=== PATIENT | female | born 1975 | race Caucasian/White ===

== ENCOUNTER → 2017-06-15 | Outpatient (CLI) | payer BC ==
[~2017-06-15] MED LIST: ACETAMINOPHEN325 M1 PO; AGGRENOX CAPSU1 EACH PO; AMITRIPTYLINE H50 M2 OR; AMITRIPTYLINE H50 M2 PO; BUSPAR PO; BUSPIRONE; BUTALB-APAP-CA1 EACH PO; FIORICET 50-301 EACH PO; HYDROCORTISONE30 G9 RECTAL; LIPITOR40 MG PO; NORCO 5-325 TA1 EACH PO; PAROXETINE HCL20 MG PO; PAXIL 20 MG TAB20 MG PO; TOPAMAX; TOPAMAX 100 MG100 MG PO; TRILIPIX135 MG PO; VITAMIN D 5050000 I1 PO; [UNRECOGNIZED DRUG - OTHER] PO
== END ==
LOC: NEURO 09:29
DX: I63.9 Cerebral infarction, unspecified (principal); G43.919 Migraine, unspecified, intractable, without status migrainosus; F41.9 Anxiety disorder, unspecified; R47.81 Slurred speech

== ENCOUNTER → 2018-06-07 | Outpatient (CLI) | payer BC | LOC: ULTRA 09:08 | DX: I73.9 Peripheral vascular disease, unspecified (principal); M79.89 Other specified soft tissue disorders; I10 Essential (primary) hypertension; E78.5 Hyperlipidemia, unspecified; G43.909 Migraine, unspecified, not intractable, without status migrainosus ==

== ENCOUNTER 2020-05-05 00:15 | Inpatient (IN) | payer BC ==
[~2020-05-05] VITALS: Ht 152.4 cm; Wt 96.1 kg
[2020-05-05 00:21] VITALS: BP 175/94
[2020-05-05] MEDS ORDERED: ASA81BEC PO (00:29)
[2020-05-05 00:45] LABS: ABSOLUTE NEUTROPHILS 4.8 thou/uL (1.4-8.2); BASOPHILS 1.3 % (0.0-2.0); EOSINOPHILS 2.4 % (0.0-3.0); HEMATOCRIT 44.6 % (37.0-47.0); HEMOGLOBIN 15.2 gm/dL (12.0-15.0); LYMPHOCYTES 35.1 % (24.0-44.0); MCH 30.6 pg (26.0-34.0); MCHC 34.1 g/dL (28.0-37.0); MCV 89.8 fL (80.0-100.0); MONOCYTES 6.2 % (1.0-8.0); PLATELET COUNT 203 thou/uL (150-400); RBC 4.97 mil/uL (4.20-5.00); RDW 13.7 % (10.5-14.5); WBC 8.7 thou/uL (4.0-11.0)
[2020-05-05 00:51] LABS: ANION GAP 12 mmol/L (7-16); BUN 10 mg/dL (7-18); CALCIUM 9.1 mg/dL (8.5-10.1); CHLORIDE 99 mmol/L (98-107); CO2 19 mmol/L (21-32); CREATININE 1.2 mg/dL (0.6-1.0); GLUCOSE 338 mg/dL (74-106); POTASSIUM 3.6 mmol/L (3.5-5.1); SODIUM 130 mmol/L (136-145)
[2020-05-05 01:01] LABS: ALBUMIN 3.2 g/dL (3.4-5.0); MAGNESIUM 1.6 mg/dL (1.8-2.4); SGOT 46 U/L (15-37); SGPT 77 U/L (30-65); TOTAL BILIRUBIN 0.3 mg/dL (0.2-1.0); TOTAL PROTEIN 8.6 g/dL (6.4-8.2); TROPONIN-I <0.06 ng/mL (<0.06)
[2020-05-05] MEDS ORDERED: NORFLEX100 MG PO (02:23)
[2020-05-05] MEDS ORDERED: TYLENOL WITH CO1 TA1 PO (02:23)
[2020-05-05] MEDS ORDERED: ONDANSETRON ODT8 MG PO (02:23)
[2020-05-05] MEDS ORDERED: NAPROSYN500 MG PO (02:23)
[2020-05-05 07:28] VITALS: BP 168/85
[2020-05-05 08:04] VITALS: BP 181/101
--- NOTE | 2020-05-05 08:12 | NUR ---
ASSUMED CARE OF PT AT 0813. REC REPORT 30 MIN PRIOR, NO NAUSEA OR CP AT THIS TIME. AMB STEADY, ENCOURAGED HER TO SIT AT BEDSIDE A MOMENT OR TWO BEFORE RISING OR CALL FOR ANY NEEDS. HUNGRY. WILL ENSURE HOME MEDS AND PHARMACY ARE CORRECT LATER IN SHIFT. HAS ON SUPPLEMENTAL 02 PER PROTOCOL. STATES SHE DOES HAVE PROPENSITY FOR ANXIETY ATTACKS WELL CHEST TIGHTNESS. SEE SEPARATE INTERVENTIONS FOR ASSESSMENT. VERY TALKATIVE, STATES SHE HAS HAD TIAS IN 2004, CAN STUTTER AND SLUR WORDS. HAS HAD HER BOTTOM TEETH PULLED OUT RECENTLY, POSSIBLE INFECTION. ENCOURAGED HER TO USE CALL LIGHT FOR ANY NEEDS
[2020-05-05] MEDS ORDERED: TYLENOL325 M1 PO (08:22)
[2020-05-05 11:41] LABS: CHOLESTEROL 266 mg/dL (<200); HDL CHOLESTEROL 41 mg/dL (>40); LDL CHOLESTEROL 163 mg/dL (<100); TC:HDL 6.5 Ratio (Not establshd); TRIGLYCERIDE 314 mg/dL (<150); VLDL 63 mg/dL (<40)
[2020-05-05 12:05] VITALS: BP 148/85
[2020-05-05 16:05] VITALS: BP 141/74
[2020-05-05 16:09] LABS: AMP/METHAMP Negative (Negative); BARBITURATES Negative (Negative); BENZODIAZEPINES Negative (Negative); COCAINE Negative (Negative); METHADONE Negative (Negative); OPIATES POSITIVE (Negative); PCP Negative (Negative)
[2020-05-05 20:13] VITALS: BP 123/67
[2020-05-06 00:39] VITALS: BP 146/88
[2020-05-06 03:03] LABS: CALCIUM 8.2 mg/dL (8.5-10.1); CREATININE 0.9 mg/dL (0.6-1.0)
[2020-05-06 03:23] LABS: TROPONIN-I 32.44 ng/mL (<0.06)
[2020-05-06 04:59] VITALS: BP 125/69
[2020-05-06 07:15] VITALS: BP 148/79
--- NOTE | 2020-05-06 08:00 | EKG ---
[facility] [place] [address] ELECTROCARDIOGRAM REPORT Name: XAVIER KIDD Kandice Room #: 213-P ADM IN M.R.#: [id number] Admission: 05/05/20 Attend Phys: Lake Foley MD Discharge: Date of : 71 Report #: [id number] THIS REPORT FOR: cc: Zion Strong MD, Mark S. MD Lundgren, Craig H. 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1975 Requested By: Jose Christine Order Number: [id number] MD: Oscar Cabello Measurements Intervals [place] Rate: 108 P: 159 IN: 156 QRS: 80 QRSD: 131 T: 49 QT: 383 QTc: 514 Interpretive Statements Sinus tachycardia Possible anteroseptal infarct, old Baseline wander in lead(s) III Compared to ECG 01/22/2011 23:11:29 Septal Q waves are now present Electronically Signed On 05-06-2020 7:59:40 CDT by Oscar Cabello [email or web address] <ELECTRONICALLY SIGNED> By: Oscar Cabello MD, [facility] 05/06/20 0759 0022 0022 Oscar Cabello MD, FAC /EPI
--- NOTE | 2020-05-06 08:04 | EKG ---
[facility] [place] [address] ELECTROCARDIOGRAM REPORT Name: XAVIER KIDD Room #: 213-P ADM IN M.R.#: [id number] Admission: 05/05/20 Attend Phys: Lake Foley MD Discharge: Date of : 71 Report #: [id number] THIS REPORT FOR: cc: Zion Strong MD, Mark S. MD Lundgren, Craig H. 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 : 1975 Requested By: Jose Christine Order Number: [id number] MD: Oscar Cabello Measurements Intervals [place] Rate: 93 P: 59 [place]: 135 QRS: 92 QRSD: 96 T: 50 QT: 356 QTc: 443 Interpretive Statements Sinus rhythm Borderline right axis deviation Low voltage, precordial leads Compared to ECG 05/05/2020 00:22:14 No significant change was found Electronically Signed On 05-06-2020 8:03:58 CDT by Oscar Cabello [email or web address] <ELECTRONICALLY SIGNED> By: Oscar Cabello MD, [facility] 05/06/20802 0 0 Oscar Cabello MD, [facility] /EPI
--- NOTE | 2020-05-06 11:06 | 2DMMODE ---
[facility] [place] [address] 2 D/M-MODE ECHOCARDIOGRAM Name: XAVIER KIDD Room #: 213-P [facility] IN .R.#: [id number] Admission: 05/05/20 Attend Phys: Sky Rey MD Discharge: Date of : 71 Report #: [id number] THIS REPORT FOR: cc: Zion Strong MD, Mark S. MD Mancuso, Gerald M. MD [facility] ~ APPROVED REPORT Study performed: 05/06/2020 08:07:13 EXAM: Comprehensive 2D, Doppler, and color-flow Echocardiogram Patient Location: Bedside Room #: 213 Status: routine BSA: 1.97 HR: 106 bpm BP: 148/79 mmHg Rhythm: NSR Other Information Study Quality: Adequate Risk Factors: Cardiac Risk Factors: HTN, Hyperlipidemia, Smoking Indications Congestive Heart Failure Non STEMI Dyspnea Elevated Troponin Chest Pain 2D Dimensions IVSd: 9.04 (7-11mm) LVOT Diam: 17.00 (18-24mm) LVDd: 39.02 mm PWd: 10.72 (7-11mm) Ascending Ao: 26.33 (22-36mm) LVDs: 29.59 (25-40mm) Aortic Root: 22.97 mm LV Single Plane 4CH: 54.82 % LV Single Plane 2CH: 49.07 % Biplane EF: 55.8 % Volumes [facility] [address] [place] [address] 2 D/M-MODE ECHOCARDIOGRAM Name: XAVIER KIDD Room #: 213-P [facility] IN ..#: [id number] Admission: 05/05/20 Attend Phys: Lester Monet Discharge: Date of : 71 Report #: [id number] Left Atrial Volume (Systole) Single Plane 4CH: 54.55 mL Single Plane 2CH: 41.69 mL LA ESV Index: 27.00 mL/m2 Aortic Valve AoV Peak Sonu.: 1.90 m/s AO Peak Gr.: 14.40 mmHg LVOT Max P.88 mmHg LVOT Max V: 1.21 m/s SAMMI Vmax: 1.38 cm2 Mitral Valve MV Peak Gr.: 24.00 mmHg MV Mean Gr.: 15.40 mmHg MV Decel. Time: 172.60 ms MV Max Sonu.: 2.43 m/s MV Mean Sonu.: 1.89 m/s MV VTI: 502.63 mm MV PHT: 50.05 ms MVA (PHT): 2.44 cm2 TDI Medial E' Sonu.: 0.07 m/s Lateral E' Sonu.: 0.08 m/s Pulmonary Valve PV Peak Sonu.: 1.22 m/s PV Peak Gr.: 5.92 mmHg Tricuspid Valve RAP Estimate: 10.00 mmHg Left Ventricle The left ventricle is normal size. There is normal LV segmental wall motion. Borderline concentric left ventricular hypertrophy. The left ventricular systolic function is normal. The left ventricular ejection fraction is within the normal range. LVEF is 50-55%. This study is not technically sufficient to allow evaluation of the LV diastolic function. Right Ventricle The right ventricle is normal size. The right ventricular systolic function is normal. Atria The left atrium size is normal. The right atrium size is normal. [facility] [address] [address] 2 D/M-MODE ECHOCARDIOGRAM Name: XAVIER KIDD Room #: 213-P ADM IN M.R.#: [id number] Admission: 05/05/20 Attend Phys: Lester Monet Discharge: Date of : 71 Report #: [id number] Aortic Valve The aortic valve is normal in structure. No aortic regurgitation is present. There is no aortic valvular stenosis. Mitral Valve There is mitral annular calcification. Mitral valve leaflets are mildly thickened and have restricted excursion. Mild mitral regurgitation. The maximum mitral valve pressure gradient is 24 mmHg and the mean pressure gradient is 15 mmHg. The calculated mitral valve area is 2.3 cm2. Tricuspid Valve The tricuspid valve is normal in structure. There is no tricuspid valve regurgitation noted. Pulmonic Valve The pulmonary valve is normal in structure. Trace pulmonic regurgitation. Great Vessels The aortic root is normal in size. The ascending aorta is normal in size. IVC is dilated and collapses <50% with inspiration. Pericardium Small pericardial effusion. <Conclusion> The left ventricle is normal size. Borderline concentric left ventricular hypertrophy. LVEF is 50-55%. This study is not technically sufficient to allow evaluation of the LV diastolic function. The right ventricle is normal size. The left atrium size is normal. The aortic valve is normal in structure. There is mitral annular calcification. Mitral valve leaflets are mildly thickened and have restricted excursion. Mild mitral regurgitation. The maximum mitral valve pressure gradient is 24 mmHg and the mean pressure gradient is 15 mmHg. The calculated mitral valve area is 2.3 cm2. [facility] [email or web address] [address] 2 D/M-MODE ECHOCARDIOGRAM Name: XAVIER KIDD Room #: 213-P [facility] IN ..#: [id number] Admission: 05/05/20 Attend Phys: Lester Monet Discharge: Date of : 71 Report #: [id number] The aortic root is normal in size. Small pericardial effusion. <ELECTRONICALLY SIGNED> By: Flaquito Marie MD, FACC 05/06/20 1105 04 Flaquito Marie MD, FACC /INF
[2020-05-06 13:48] LABS: BE(vivo) -9.6 mmol/L (-2 to +3); HCO3 15.5 mmol/L (22.0-26.0); PCO2 31.8 mmHg (35.0-45.0); PO2 108.6 mmHg (80.0-100.0); pH 7.305 (7.360-7.450); sO2 97.6 % (92.0-98.0)
--- NOTE | 2020-05-06 14:00 | NUR ---
RRRT CALLED SEE FLOWSHEET.
[2020-05-06 14:03] LABS: ABSOLUTE NEUTROPHILS 9.7 thou/uL (1.4-8.2); BASOPHILS 0.8 % (0.0-2.0); EOSINOPHILS 0.6 % (0.0-3.0); HEMATOCRIT 41.5 % (37.0-47.0); HEMOGLOBIN 14.1 gm/dL (12.0-15.0); LYMPHOCYTES 12.7 % (24.0-44.0); MCH 30.6 pg (26.0-34.0); MCHC 34.1 g/dL (28.0-37.0); MCV 89.7 fL (80.0-100.0); MONOCYTES 4.4 % (1.0-8.0); PLATELET COUNT 208 thou/uL (150-400); POLYS 81.5 % (36.0-66.0); RBC 4.62 mil/uL (4.20-5.00); RDW 14.1 % (10.5-14.5); WBC 11.9 thou/uL (4.0-11.0)
[2020-05-06 14:09] LABS: CALCIUM 8.2 mg/dL (8.5-10.1); CREATININE 1.1 mg/dL (0.6-1.0); POTASSIUM 4.4 mmol/L (3.5-5.1)
[2020-05-06 15:54] VITALS: BP 123/74
--- NOTE | 2020-05-06 16:29 | 2DMMODE ---
[address] [address] 2 D/M-MODE ECHOCARDIOGRAM Name: XAVIER KIDD Kandice Room #: 213-P ADM IN M.R.#: [id number] Admission: 05/05/20 Attend Phys: Sky Rey MD Discharge: Date of : 71 Report #: [id number] THIS REPORT FOR: cc: Zion Strong MD, Mark S. MD Lundgren, Craig H. MD [facility] ~ APPROVED REPORT Study performed: 05/06/2020 14:05:01 EXAM: Comprehensive 2D, Doppler, and color-flow Echocardiogram Patient Location: Bedside Room #: 213 Status: stat BSA: 1.97 HR: 96 bpm BP: 146/79 mmHg Rhythm: NSR Other Information Study Quality: Adequate Indications Dyspnea Chest Pain Left Ventricle The left ventricle is normal size. There is normal left ventricular wall thickness. The left ventricular systolic function is normal. Mild inferolateral wall hypokinesis LVEF is 50-55%. Right Ventricle The right ventricle is normal size. The right ventricular systolic function is normal. Atria The left atrium size is normal. The right atrium size is normal. Aortic Valve The aortic valve is normal in structure. Mitral Valve The mitral valve is normal in structure. [address] [address] 2 D/M-MODE ECHOCARDIOGRAM Name: XAVIER KIDD Room #: 213-P [facility] IN .R.#: [id number] Admission: 05/05/20 Attend Phys: Lester Monet Discharge: Date of : 71 Report #: [id number] Tricuspid Valve The tricuspid valve is normal in structure. Pulmonic Valve The pulmonary valve is normal in structure. Great Vessels The aortic root is normal in size. Pericardium There is no pericardial effusion <Conclusion> Very limited study, no Doppler or color flow mapping The left ventricular systolic function is normal. Mild inferolateral wall hypokinesis LVEF is 50-55%. The aortic valve is normal in structure. The mitral valve is normal in structure. There is no pericardial effusion <ELECTRONICALLY SIGNED> By: Oscar Cabello MD, [facility] 05/06/20 1629 1629 162 Oscar Cabello MD, FAC /INF
--- NOTE | 2020-05-06 19:49 | NUR ---
ASSUMED CARE PT SHIFT CHANGE. ASSESSMENTS CHARTED.MEDS GIVEN PER DEC. PT ALERT AND ORIENTED.VSS. PT TAKEN FOR CATH THIS AM. 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 BP LOW. PT BECAME IN DISTRESS. NON REBREATHER APPLIED. RAPID RESPONSE ACTIVATED. BREATHING TX ORDERED. RT CHANGED TO OPTIFLOW EVENTUALLY. SATS BECAME BETTER. PT BECAME MUCH MORE ALERT AND AWAKE. SPOUSE WITH PT ALL THROUGHOUT DAY. C/O HEAD PAIN- MANAGED WITH IV PAIN MEDS. PT CURRENTLY SITTING UP COMFORTABLY IN BED, NO RESP DISTRESS. LEFT GROIN SITE CDI, NO HEMATOMA. REPORT PASSED ONTO NOC RN.
[2020-05-06 20:00] VITALS: BP 123/62
--- NOTE | 2020-05-06 22:43 | NUR ---
ASSUMED CARE OF PT, ASSESSED, VSS, PT NEEDED TO URINATE, USED BSC FOR SAFETY, PT "DRIBBLED" ON NADIA IN BED QUITE A BIT, BEDDING CHANGED, POC REVIEWED, PT VERBALIZED UNDERSTANDING, HAD JUST FINISHED A BREATHING TX AND WAS COUGHING, THROAT LOZENGE GIVEN WITH MEDS, MORPHINE GIVEN FOR PAIN IN CHEST FROM COUGHING 04/10. NEW IV WAS STARTED RW IV WAS INFILTRATED AND LAC WAS LEAKING, WILL MONITOR
[2020-05-07] VITALS (56 sets, daily range): BP systolic 66–287; BP diastolic 37–192
--- NOTE | 2020-05-07 03:53 | NUR ---
ASSUMED PT CARE AT 2300. PT IS ALERT AND ORIENTED. PT IS SITTING IN BED WITH CONTINUOUS COUGHING. PT IS STABLE. PAIN MED ADMINISTERED PT. PT IS ANXIOUS FOR THE MOST PART OF THE NIGHT. PT IS NPO. CONTINUE TO MONITOR PT. DENIES ANY FURTHER NEEDS AT THIS TIME
--- NOTE | 2020-05-07 07:42 | EKG ---
[facility] [address] [facility] [place] [address] ELECTROCARDIOGRAM REPORT Name: SCOTARAMAimeJARONXAVIER Kandice Room #: 213-P ADM IN M.R.#: [id number] Admission: 05/05/20 Attend Phys: Sky Rey MD Discharge: Date of : 71 Report #: [id number] THIS REPORT FOR: cc: Zion Strong MD, Mark S. MD Lundgren, Craig H. 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 : 1975 Requested By: Steven Rosas Order Number: [id number] MD: Oscar Cabello Measurements Intervals [place] Rate: 100 P: 72 [place]: 130 QRS: 115 QRSD: 78 T: 48 QT: 339 QTc: 438 Interpretive Statements Sinus tachycardia Right axis deviation Low voltage, precordial leads Baseline wander in lead(s) V6 Compared to ECG 05/05/2020 05:31:11 [place] has shifted rightward Electronically Signed On 05-07-2020 7:42:07 CDT by Oscar Cabello [email or web address] <ELECTRONICALLY SIGNED> By: Oscar Cabello MD, [facility] 05/07/20 0742 1347 1347 Oscar Cabello MD, [facility] /EPI
--- NOTE | 2020-05-07 07:45 | EKG ---
[facility] [place] [address] ELECTROCARDIOGRAM REPORT Name: BERNABEXAVIER D Room #: 213-P ADM IN M.R.#: [id number] Admission: 05/05/20 Attend Phys: Sky Rey MD Discharge: Date of : 71 Report #: [id number] THIS REPORT FOR: cc: Zion Strong MD, Mark S. 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1975 Requested By: Sky Rey Order Number: [id number] MD: Oscar Cabello Measurements Intervals [place] Rate: 105 P: 85 [place]: 140 QRS: 142 QRSD: 140 T: 53 QT: 384 QTc: 508 Interpretive Statements Sinus tachycardia Rightward axis ST segment abnormality Compared to ECG 05/06/2020 13:47:46 No significant change was found Electronically Signed On 05-07-2020 7:44:38 CDT by Oscar Cabello [email or web address] <ELECTRONICALLY SIGNED> By: Oscar Cabello MD, [facility] 05/07/20 0744 1547 1547 Oscar Cabello MD, [facility] /EPI
[2020-05-07 09:45] LABS: ALBUMIN 2.6 g/dL (3.4-5.0); CALCIUM 8.7 mg/dL (8.5-10.1); CREATININE 1.3 mg/dL (0.6-1.0); POTASSIUM 4.5 mmol/L (3.5-5.1); TOTAL BILIRUBIN 0.6 mg/dL (0.2-1.0)
[2020-05-07 11:20] LABS: BE(vivo) -9.6 mmol/L (-2 to +3); HCO3 15.9 mmol/L (22.0-26.0); PCO2 33.9 mmHg (35.0-45.0); PO2 48.6 mmHg (80.0-100.0); pH 7.289 (7.360-7.450); sO2 80.2 % (92.0-98.0)
--- NOTE | 2020-05-07 14:25 | NUR ---
RIJ PROCEDURE: RISK, BENEFITS, AND ALTERNATIVE TREATMENT DISCUSSED WITH THE PATIENT. TEACHING GIVEN RELATED TO POSSIBLE COMPLICATIONS SUCH BLEEDING, INFECTION, CLOT, OR VESSEL PERFORATION. INSTRUCTION GIVEN RELATED TO CLABSI PREVENTION WITH LITERATURE PROVIDED. PATIENT VOICES UNDERSTANDING TO THE ABOVE. CONSENT OBTAINED. TRIPL LUMEN CATHTER PLACED TO ORJ. ONE STICK AND NO COMPLICATIONS. PATIENT TOLERATED WELL. CENTRAL CATHETER LENGTH =28CM. EXTERNAL =11 CM. TIP OF CATHETER CONFIRMED SVC PER CHEST XRAY. YANN BLACK NOTIFIED GOYO TO USE CENTRAL CATHETER.
[2020-05-07 14:57] LABS: BE(vivo) -7.4 mmol/L (-2 to +3); PCO2 36.5 mmHg (35.0-45.0); PO2 86.6 mmHg (80.0-100.0); sO2 95.9 % (92.0-98.0)
[2020-05-07 14:58] LABS: pH 7.311 (7.360-7.450)
--- NOTE | 2020-05-07 16:51 | NUR ---
ASSUMED CARE PT SHIFT CHANGE. ASSESSMENT CHARTED. UPON RECEIVING THE PT THIS AM PT SEEMED TO BE ALERT, ORIENTED, BREATHING ADEQUATELY WITH NO ISSUES. PT C/O COUGHING EXCESSIVELY, STATED THAT PT DID NOT SLEEP MUCH THROUGHOUT THE NIGHT DUE TO COUGHING. PT C/O PAIN IN CHEST FROM COUGHING, MANAGED WITH IV PAIN MEDS. AT APPROX 1100 PT BEGAN TO C/O SOA, COUGHING HAD WORSENED, PT WAS HYPOXIC SATS IN 80S ON OPTIFLOW SETTINGS OF 60 L FIO2 97%. RN NOTIFIED RT OF SOA, RT ARRIVED FOR BREATHING TREATMENT. PHYSICIAN NOTIFIED BREATHING TREATMENT HAD NOT IMPROVED PT BREATHING. ORDERS RECEIVED FOR ABG, BIPAP APPLIED TO PT PER HOSPITALIST ORDER. BIPAP INEFFECTIVE. TRANSFER ORDERS ICU. REPORT GIVEN TO YANN BLACK. FAMILY NOTIFIED. PT TRANSFERRED TO ICU RM 237 WITH ALL BELONGINGS.
--- NOTE | 2020-05-07 19:35 | NUR ---
PATIENT IS INTUBATED AND SEDATED FOR VET SUPPORT. PATIENT WILL WAKE UP AND FOLLOW COMMANDS WHEN SEDATION IS DECREASED. HOWEVER WHEN SEDATION IS DECREASED PATIENT BECOMES ANXIOUS, STARTS COUGHING AND MOVING AROUND THE BED. PATIENT STATED THAT THE PATIENT JUST RECENTLY HAD 6 TEETH EXTRACTED ABOUT TWO WEEKS AGO. HE ALSO STATES THAT THE PATIENT TOOK AN ANTIBIOTIC PRIOR TO THE REMOVEAL. PRIOR TO PATIENT BEING INTUBATED SHE STATED THAT SHE HAD A LIV[facility] WILL HERE AT [facility] AND WOULD LIKE IT TO BE FOLLOWED.NO OTHER CONCERNS AT THIS TIME. WILL CONTINUE TO MONITOR AND CARE PER PLAN OF CARE.
--- NOTE | 2020-05-07 23:07 | NUR ---
2251 RETURNED CALL TO PT'S UPON INQUIRY, RN INFORMED HIM THAT PT'S SECOND COVID TEST WAS NEGATIVE. FURTHER UPDATED HIM ON PT'S STATUS CURRENT VITAL SIGNS AND RECENT ADMINISTRATED OF LEVO GTT TO KEEP PT'S MAP ABPVE 60. PT WANTED TO KNOW IF HE COULD COME VISIT PT AT 9AM. RN TOLD THE YES. 2301 INFORMED KAREN BRIGHT ABOUT SECOND NEGATIVE COVID TEST.
[2020-05-08] VITALS (93 sets, daily range): BP systolic 82–138; BP diastolic 39–82
[2020-05-08 05:30] LABS: HCO3 18.4 mmol/L (22.0-26.0); PCO2 32.9 mmHg (35.0-45.0); PO2 174.3 mmHg (80.0-100.0); pH 7.365 (7.360-7.450); sO2 99.2 % (92.0-98.0)
[2020-05-08 06:05] LABS: ABSOLUTE NEUTROPHILS 14.7 thou/uL (1.4-8.2); BASOPHILS 0.1 % (0.0-2.0); HEMATOCRIT 36.6 % (37.0-47.0); HEMOGLOBIN 12.2 gm/dL (12.0-15.0); LYMPHOCYTES 3.4 % (24.0-44.0); MCH 30.4 pg (26.0-34.0); MCHC 33.3 g/dL (28.0-37.0); MCV 91.1 fL (80.0-100.0); MONOCYTES 3.8 % (1.0-8.0); PLATELET COUNT 193 thou/uL (150-400); POLYS 92.7 % (36.0-66.0); RBC 4.02 mil/uL (4.20-5.00); RDW 14.1 % (10.5-14.5); WBC 15.8 thou/uL (4.0-11.0)
[2020-05-08 06:16] LABS: CREATININE 1.3 mg/dL (0.6-1.0); POTASSIUM 3.6 mmol/L (3.5-5.1); TOTAL BILIRUBIN 0.7 mg/dL (0.2-1.0); TOTAL PROTEIN 7.2 g/dL (6.4-8.2)
--- NOTE | 2020-05-08 08:10 | NUR ---
LEVO STARTED ON PT BECAUSE MAP WAS LESS THAN 60. PT ON LEVO AT 6 NOW, PROPOFOL TITRATED PRN. VSS. TOTAL U/0 OF 475 THIS SHIFT. PT IS STABLE, WILL CONTINUE TO CLOSELY MONITOR.
--- NOTE | 2020-05-08 13:08 | NUR ---
If unable to extubate recommend start TF in next 48 hr of vital high protein at 15ml/hr. Will continue to follow for recommended goal rate if started.
--- NOTE | 2020-05-08 16:02 | NUR ---
chart review. pt remains on vent unable to visit with her at this time, will cont following as needed for dc needs. noted per chart, lives with spouse and independent prior to hospital.
[2020-05-08 21:28] LABS: BE(vivo) -2.5 mmol/L (-2 to +3); HCO3 20.3 mmol/L (22.0-26.0); PCO2 29.5 mmHg (35.0-45.0); pH 7.455 (7.360-7.450); sO2 96.3 % (92.0-98.0)
[2020-05-09] VITALS (74 sets, daily range): BP systolic 42–161; BP diastolic 18–104
--- NOTE | 2020-05-09 02:00 | NUR ---
pt self extubated herself on 05/08 2100. Pt was talking and able to cough after extubation. ER doctor at beside 2200. per ER Doctor, pt was put in Non rebreather. Dr. Blanchard was notified of pt self extubation at 2215. order for stat ABG and bipap was given. pt was placed on bipap. Pt RR still in upper 50's. pt was given prn lorazepam and started on precedex drip per Dr. Blanchard. With multiple efforts to bring Pt respiratory rate down, pt was reintubated at 0030 05/09/20 by . OG tube was placed. Placement of ETT tube and OG tube confirmed via Chest XRAY.
[2020-05-09 02:38] LABS: ABSOLUTE NEUTROPHILS 14.2 thou/uL (1.4-8.2); BASOPHILS 0.3 % (0.0-2.0); HEMATOCRIT 38.1 % (37.0-47.0); HEMOGLOBIN 12.6 gm/dL (12.0-15.0); LYMPHOCYTES 2.1 % (24.0-44.0); MCV 91.1 fL (80.0-100.0); MONOCYTES 3.4 % (1.0-8.0); PLATELET COUNT 192 thou/uL (150-400); POLYS 94.2 % (36.0-66.0); RBC 4.19 mil/uL (4.20-5.00); RDW 14.2 % (10.5-14.5); WBC 15.1 thou/uL (4.0-11.0)
[2020-05-09 02:51] LABS: CALCIUM 8.5 mg/dL (8.5-10.1); CREATININE 1.1 mg/dL (0.6-1.0); POTASSIUM 3.5 mmol/L (3.5-5.1); TOTAL BILIRUBIN 0.7 mg/dL (0.2-1.0); TOTAL PROTEIN 7.5 g/dL (6.4-8.2)
--- NOTE | 2020-05-09 03:00 | NUR ---
Pt having bright red urine output from her guaman. KAREN Murcia notified and pt started on CBI. Continue to monitor.
[2020-05-09 05:21] LABS: BE(vivo) -5.4 mmol/L (-2 to +3); HCO3 18.5 mmol/L (22.0-26.0); PCO2 31.4 mmHg (35.0-45.0); PO2 56.3 mmHg (80.0-100.0); pH 7.389 (7.360-7.450); sO2 89.5 % (92.0-98.0)
--- NOTE | 2020-05-09 08:18 | NUR ---
Pt's is updated about pt's reintubation at night.
--- NOTE | 2020-05-09 10:00 | NUR ---
Pt's at bedside. aware that pt self extubated last night and required reintubation. Discussed plans to keep sedated. Pt becomes tachypnic and desaturates into 80's when coughing.
[2020-05-09 10:53] LABS: BE(vivo) -5.6 mmol/L (-2 to +3); HCO3 18.3 mmol/L (22.0-26.0); PCO2 31.3 mmHg (35.0-45.0); pH 7.385 (7.360-7.450); sO2 84.4 % (92.0-98.0)
[2020-05-09 10:57] LABS: PO2 48.7 mmHg (80.0-100.0)
--- NOTE | 2020-05-09 11:15 | NUR ---
Pt on max doses of Precedex and Propofol. Desaturates rapidly with any coughing or movement. Hypoxic. Critical ABG was called to [facility] De Jesus Brandon and Lo. CBI continues with light pink urine with sediment. Pt received one time dose of Lasix-see emar.
[2020-05-09 12:51] LABS: BE(vivo) -5.6 mmol/L (-2 to +3); HCO3 19.4 mmol/L (22.0-26.0); PCO2 36.3 mmHg (35.0-45.0); pH 7.345 (7.360-7.450)
[2020-05-09 12:53] LABS: PO2 54.5 mmHg (80.0-100.0)
--- NOTE | 2020-05-09 13:45 | NUR ---
Jesse Blanchard and Tracey aware of most recent ABG's. Dr Drummond saw pt as new consult. Dr Webb ordered STAT echocardiogram. technical service representative here to do the echo. signed consent for placement of an arterial line.
--- NOTE | 2020-05-09 13:50 | NUR ---
head of academic technology here to do echocardiogram. Both Eloisa Blanchard and Aleksandr here at 1230 and talked with patient's . Preparation for placement of an arterial line by Dr Blanchard. Procalcitonin 2.28. Consultation with Dr Bhanu lynn.
--- NOTE | 2020-05-09 14:28 | 2DMMODE ---
[facility] [place] [address] 2 D/M-MODE ECHOCARDIOGRAM Name: MAGDIELANGELBRANDIEXAVIER D Room #: 241-P ADM IN M.R.#: [id number] Admission: 05/05/20 Attend Phys: Sky Rey MD Discharge: Date of : 71 Report #: [id number] THIS REPORT FOR: cc: Zion Strong MD, Mark S. MD Mancuso, Gerald M. MD [facility] ~ APPROVED REPORT Study performed: 05/09/2020 13:44:48 EXAM: Limited 2D, Doppler, and color-flow Echocardiogram Patient Location: ICU Room #: 241 Status: routine BSA: 1.98 HR: 97 bpm BP: 131/59 mmHg Rhythm: NSR Other Information Study Quality: Adequate Technically limited study due to obesity, on vent, unable to position. Indications Limited follow up echo for respiratory failure. Recent [facility] (05/06/20) status post NSTEMI, PTCA. Hx: CVA, PVD, HTN, HLP, tob. 2 echos done on 05/06/20. Tricuspid Valve TR Peak Sonu.: 3.90 m/s RAP Estimate: 15.00 mmHg TR Peak Gr.: 61.00 mmHg PA Pressure: 76.00 mmHg Left Ventricle The left ventricle is normal size. There is normal left ventricular wall thickness. Left ventricular systolic function is normal. LVEF is 50-55%. Right Ventricle The right ventricle appears normal size and mildly hypokinetic. Atria [facility] [address] [place] [address] 2 D/M-MODE ECHOCARDIOGRAM Name: MAGDIELANGELBRANDIEXAVIER D Room #: 241-P [facility] IN ..#: [id number] Admission: 05/05/20 Attend Phys: Lester Monet Discharge: Date of : 71 Report #: [id number] The left atrium size is normal. The right atrium size is normal. Aortic Valve The aortic valve is normal in structure. No aortic regurgitation is present. Mitral Valve There is restricted motion of the mitral valve leaflets. (Peak pressure gradient of 25mmHg; mean of 15mmHg) Trace to mild mitral regurgitation. Tricuspid Valve The tricuspid valve is normal in structure. Mild tricuspid regurgitation. Estimated PAP is 70-75mmHg. Great Vessels IVC is dilated and collapses <50% with inspiration. Pericardium Small pericardial effusion. <Conclusion> The left ventricle is normal size. LVEF is 50-55%. The right ventricle appears normal size and mildly hypokinetic. The left atrium size is normal. The aortic valve is normal in structure. There is restricted motion of the mitral valve leaflets. (Peak pressure gradient of 25mmHg; mean of 15mmHg) Trace to mild mitral regurgitation. Mild tricuspid regurgitation. Estimated PAP is 70-75mmHg. Small pericardial effusion. <ELECTRONICALLY SIGNED> By: Flaquito Marie MD, [facility] 05/09/20 1428 1428 1428 Flaquito Marie MD, [facility] /INF
--- NOTE | 2020-05-09 14:45 | NUR ---
COVID swab and MRSA swab of nares done by Fritz Estrella RN. and taken to the lab. Left radial arterial line placed by Dr Blanchard.
--- NOTE | 2020-05-09 15:00 | HC ---
[facility] [place] [address] CONSULTATION Name: XAVIER KIDD Room #: 241-P ADM IN M.R.#: [id number] Admission: 05/05/20 Attend Phys: Sky Rey MD Discharge: Date of : 71 Report #: [id number] THIS REPORT FOR: cc: Zion Strong MD, Mark S. MD Melton, Jeremiah J. PA ~ CC: Sky Strong REASON FOR CONSULTATION: We are asked for consultation regarding carotid stenosis to cardiothoracic team. HISTORY OF PRESENT ILLNESS: The patient is seen today. Consult was on 05/06/2020, seen today on 05/08/2020, admission was on 05/05/2020. Patient on evaluation is currently now on the ventilator and sedated secondary to acute on chronic respiratory failure, possibly aspiration. However, we were consulted for left carotid stenosis. The patient is a 45-year-old female with history of TIA, hypertension, hyperlipidemia, carotid artery stenosis, status post left carotid dissection in 2004, peripheral artery disease, and tobacco abuse. The patient presented to the ED with chest pain as per other previous practitioner notes, an episode of chest pain involving shoulder, neck with tingling sensation and nausea. The patient was brought into the ER, was evaluated. Her troponin was 0.94. The patient was subsequently taken for cardiac catheterization and found to have an occlusion to the OM2, which PTCA was performed by Dr. Marie. PAST MEDICAL HISTORY: CVA, hypertension, hyperlipidemia, peripheral vascular disease, left carotid dissection with carotid stenosis in 2004 and NSTEMI. PAST SURGICAL HISTORY: Surgery to right leg, unable to ascertain exactly what at this point and a recent cardiac catheterization with PTCA to the OM2. SOCIAL HISTORY: Only able to ascertain smoking 1 pack per day. ALLERGIES: CAPSAICIN, CAUSES ITCHING AND SWELLING and CAYENNE, UNKNOWN REACTION. HOME MEDICATIONS: As follows: 1. Norflex 100 mg b.i.d. 2. Fenofibric acid 135 mg. 3. Aspirin 81 mg. 4. Naprosyn 500 mg b.i.d. 5. Tylenol 325 mg as needed. 6. Topamax 100 mg. 7. Amitriptyline 50 mg. 8. Paxil 20 mg. 9. Sumadan cleanser and vitamin B. [address] [address] CONSULTATION Name: XAVIER KIDD Room #: [facility] IN ..#: [id number] Admission: 05/05/20 Attend Phys: Sky Rey MD Discharge: Date of : 71 Report #: [id number] REVIEW OF SYSTEMS: Not able to ascertain due to the patient being on the vent and sedated. VITAL SIGNS: Blood pressure 114/70, pulse of 98 and sinus, respiratory rate of 20 on the ventilator. LABORATORY DATA: Sodium 134, potassium 3.6, chloride is 100, CO2 is 23. BUN 26, creatinine 1.3. White blood cell count 15.8, hemoglobin 12.2, hematocrit 36.6, platelets are 193. The patient has been COVID tested x 2, both of which were negative. The patient has had an echo showing EF of 50-55% with mild mitral regurgitation and small pericardial effusion. The patient has had a recent cardiac catheterization and has had a PTCA performed OM2. Angio done as well by Dr. Cee showing chronic occlusion to the left internal carotid with left cerebral hemisphere being supplied primarily via the right carotid and also the vertebrobasilar system. ASSESSMENT: 1. Carotid stenosis as stated previously. 2. Non-ST elevation myocardial infarction with recent PTCA to OM2. 3. Acute on chronic respiratory failure, on the ventilator, newly diagnosed diabetes type 2, tobacco abuse. PLAN: On the way of Cardiothoracic Surgery being chronically occluded left internal carotid artery, there is nothing surgically at this point. We are happy to follow along as an outpatient way with Dr. Cee in the way of progressing right carotid artery at given time in future, but at this point, there is no surgical interventions indicated. <ELECTRONICALLY SIGNED> By: MAGGI Logan 05/09/20 1500 [id number] MAGGI Logan /nt
[2020-05-09 15:06] LABS: CALCIUM 7.8 mg/dL (8.5-10.1); CREATININE 1.3 mg/dL (0.6-1.0); POTASSIUM 3.6 mmol/L (3.5-5.1)
--- NOTE | 2020-05-09 15:14 | NUR ---
MEETING WITH PT'S , MARY ALICE THIBODEAUX, NURSE CORE FITTER AND CHARGE NURSE. AIRED GRIEVANCES ABOUT NOT KNOWING THE PLAN OR PROGNOSIS FOR HIS 'S CARE. BOTH PHYSICIANS SPOKE AT LENGTH ABOUT IMPORTANCE OF GETTING PT'S PULM STATUS CONTROLLED. STATED PT'S ADVANCED DIRECTIVE STATES SHE DOES NOT WANT ANY LIFE PROLONGING CARE, BUT IS AGREEABLE TO GIVE HER MORE TIME BEFORE WITHDRAWING ANY CARES. STATES HE MAY HAVE TO GO BACK TO WORK NEXT WEEK AND WILL MAYBE HAVE ANOTHER FAMILY COME TO THE HOSPITAL IN HIS PLACE. HE WILL LET US KNOW THIS WEEKEND. I ASSURED THAT HE IS ALWAYS WELCOME TO TALK WITH THE NURSES AND ASK FOR PHYSICIANS TO CALL HIM IF HE DOES NOT SEE THEM IN PERSON.
[2020-05-09 15:25] LABS: URINE BILIRUBIN NEGATIVE (Negative); URINE BLOOD 3+ (Negative); URINE CLARITY SL CLOUDY; URINE COLOR RED; URINE GLUCOSE-RANDOM* NEGATIVE (Negative); URINE KETONES NEGATIVE (Negative); URINE LEUKOCYTES-REFLEX TRACE (Negative); URINE NITRITE-REFLEX NEGATIVE (Negative); URINE PROTEIN (DIPSTICK) 1+ (Negative); URINE UROBILINOGEN 0.2 E.U./dl (0.2-1.0)
[2020-05-09 15:40] LABS: BACTERIA-REFLEX 1-9 Few /HPF (None Seen); CASTS None Seen /LPF (None Seen); CRYSTALS None Seen /LPF (None Seen); SQUAMOUS None Seen /LPF (0-3); URINE RBC >20 Many /HPF (0-2); URINE WBC-REFLEX 6-15 Few /HPF (0-5)
--- NOTE | 2020-05-09 16:58 | NUR ---
BASELINE TRAIN OF FOUR PERFORMED AT 1642 AND PATIENT WAS AT A 7 TO GET THUMB RESPONSE. AFTER THAT NIMBEX IV PUSH WAS STARTED AND PATIENT INTIALLY STARTED TO DESAT WITH OXYGEN LEVELS DECREASING TO 69%, HOWEVER PATIENT RECOVERED QUICKLY AND THEN CONTINOUS INFUSION WAS STARTED. VSS AT THIS TIME. PATIENT IS AT BEDSIDE. NO FURTHER CONCERNS AT THIS TIME. WILL CONTINUE TO MONITOR AND CARE PER PLAN OF CARE.
[2020-05-09 19:59] LABS: BE(vivo) -10.8 mmol/L (-2 to +3); HCO3 15.5 mmol/L (22.0-26.0); PCO2 35.8 mmHg (35.0-45.0); PO2 102.7 mmHg (80.0-100.0); sO2 96.9 % (92.0-98.0)
[2020-05-09 20:01] LABS: pH 7.253 (7.360-7.450)
[2020-05-09 22:03] LABS: HCO3 21.4 mmol/L (22.0-26.0); PCO2 44.3 mmHg (35.0-45.0); PO2 113.8 mmHg (80.0-100.0); pH 7.301 (7.360-7.450); sO2 97.7 % (92.0-98.0)
[2020-05-10] VITALS (41 sets, daily range): BP systolic 81–220; BP diastolic 16–178
[2020-05-10 04:59] LABS: BE(vivo) -5.1 mmol/L (-2 to +3); HCO3 19.7 mmol/L (22.0-26.0); PCO2 36.2 mmHg (35.0-45.0); PO2 62.3 mmHg (80.0-100.0); pH 7.354 (7.360-7.450); sO2 91.1 % (92.0-98.0)
[2020-05-10 05:48] LABS: HEMOGLOBIN 13.6 gm/dL (12.0-15.0)
[2020-05-10 05:51] LABS: HEMATOCRIT 39.4 % (37.0-47.0); MCH 31.1 pg (26.0-34.0); MCHC 34.5 g/dL (28.0-37.0); RBC 4.37 mil/uL (4.20-5.00); RDW 14.6 % (10.5-14.5); WBC 9.5 thou/uL (4.0-11.0)
--- NOTE | 2020-05-10 07:53 | NUR ---
Pt still unable to be layed flat or turned to either side without significant drop in O2 saturation (usually down to 85%). Pt takes approximately 30-45 minutes to recover to sat > 92% even with FiO2 at 100%. O2 sat improved with Nimbex gtt titrated to TOF 2/4 in addition to Propofol, Versed, and Precedex gtts for sedation. Urine output 1950 cc this shift. Urine clear at beginning of shift but by 0000 was cloudy, with small amount of sediment and blood clots. CBI used to help maintain guaman patency. OG to LIS had 400cc of brown bile drainage this shift. Skin integrity remains intact. Levophed gtt restarted at midnight due to low SVR. MAP remained > 60 even without Levophed.
[2020-05-10 08:11] LABS: CALCIUM 7.2 mg/dL (8.5-10.1); CREATININE 1.8 mg/dL (0.6-1.0); POTASSIUM 3.7 mmol/L (3.5-5.1)
[2020-05-10 10:52] LABS: ALBUMIN 1.7 g/dL (3.4-5.0); CALCIUM 6.9 mg/dL (8.5-10.1); CREATININE 2.3 mg/dL (0.6-1.0); POTASSIUM 3.8 mmol/L (3.5-5.1)
--- NOTE | 2020-05-10 11:02 | NUR ---
If tube feeds cans start over weekend recommend vital high protein at 15ml/hr
--- NOTE | 2020-05-10 13:36 | NUR ---
0800-SEE [facility] FOR VS,GTT TITRATIONS,HRLY UOP,SIG EVENTS.--VW 1000-MARY ALICE PETERS MANCUSO IN AT VARIOUS TIMES. PT CRITICAL.JOSE WHEAT & [facility] TO UPDATE AT SOME POINT TODAY.--VW 1300- PRESENT.CALLS TO [facility] & MARY ALICE.FREQ D/W RE:POC.LAB CALLED EARLIER-BLOOD IS LYPIMIC & NOT ABLE TO SPIN DOWN- TO D/C PROPOFOL & FENTANYL TO BE USED INSTEAD.WILL SEND BLOOD ~1HR p PROPOFOL COMPLETELT OFF. JUGGLING W TITRATIONS TO KEEP MAPUP,RR DOWN,TOF 2/4.UOP POOR--[facility] FOLLOWING.--VW
--- NOTE | 2020-05-10 16:09 | NUR ---
Patient cont on vent. 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 No weekend dc plans noted.
[2020-05-10 16:53] LABS: HEMOGLOBIN 13.7 gm/dL (12.0-15.0); MCH 31.5 pg (26.0-34.0)
[2020-05-10 16:55] LABS: HEMATOCRIT 39.4 % (37.0-47.0); MCHC 34.9 g/dL (28.0-37.0); MCV 90.4 fL (80.0-100.0); RBC 4.36 mil/uL (4.20-5.00); RDW 14.9 % (10.5-14.5); WBC 12.5 thou/uL (4.0-11.0)
[2020-05-10 17:27] LABS: FIBRINOGEN > 900 mg/dL (210-360); PROTIME > 210.1 Seconds (9.3-11.4)
[2020-05-10 17:28] LABS: INR > 18.0
[2020-05-10 20:53] LABS: BE(vivo) -15.9 mmol/L (-2 to +3); HCO3 9.4 mmol/L (22.0-26.0); PCO2 22.1 mmHg (35.0-45.0); PO2 161.3 mmHg (80.0-100.0); sO2 98.8 % (92.0-98.0)
[2020-05-10 20:54] LABS: pH 7.247 (7.360-7.450)
--- NOTE | 2020-05-10 21:10 | NUR ---
PT DECOMPENSATING; Nancy BRIGHT NP NOTIFIED; DR. MURRY NOTIFIED, ORDERS RECIEVED. CALLED TO COME IN AND TALK WITH DR. MURRY
--- NOTE | 2020-05-10 21:50 | NUR ---
Pt coded at 2114, see code record. had been called to come to hospital approximately 10 min. before pt coded. Dr. Blanchard also notified of pt decline prior to code and was in route to hospital when code occurred. Pt obtained ROSC at 2120 and currently in [facility]
--- NOTE | 2020-05-10 23:56 | NUR ---
Pt at 2218. Pt's at bedside with Dr. Blanchard.
--- NOTE | 2020-05-17 09:52 | CATHLAB ---
[facility] [place] [address] INVASIVE PROCEDURE REPORT Name: XAVIER KIDD Room #: 241-P [facility] IN M.R.#: [id number] Admission: 05/05/20 Attend Phys: Sky Rey MD Discharge: 05/10/20 Date of : 71 Report #: [id number] THIS REPORT FOR: cc: Zion Strong MD, Mark S. MD Mancuso, Gerald M. MD [facility] ~ APPROVED REPORT Study performed: 05/06/2020 11:23:32 Patient Details Patient Status: In-Patient Room #: The patient is a 45 year-old female Event Personnel Flaquito Marie Actuarial Intern, Katey Byrnes RN RN, Beatriz Sapp RT(R)() Olivier Garcia Ja'net RTR Monitor Procedures Performed Left Heart Cath w/or w/o Coronaries [id number] [facility] PTCA Single Vessel RAMUS Interm [id number] PCISINGLE Art Access - L femoral artery* 80598 Initial Mod Sed Same Phys/QHP Gr5y [id number] 75828 Mod Sed Same Phys/QHP Ea [id number] Procedure Narrative The patient was brought electively to the Cardiac Catheterization Laboratory and was prepped and draped in a sterile manner. A 6FR SHEATH sheath was inserted into the LFA^. Coronary angiography was performed using coronary diagnostic catheters. The right coronary system was accessed and visualized with a JR4 catheter. The left coronary system was accessed and visualized with a JL4 catheter. The left ventricle was accessed and visualized with a PIGTAIL catheter. Closure device was deployed with a Fr MYNX CONTROL 6F/7F L#[id number]. There was no hematoma. This was a combo case with DR Cee. Intraoperative Conscious Sedation Sedation start time: 10:44 Case end Time: 12:48 Fentanyl 100 mcg Versed 1.5 mg Fluoro Time: 27.50 minutes Dose: DAP 00388.50 cGycm2 6701 mGy Contrast Type and Amount: Omnipaque 350 200ml [facility] [place] [address] INVASIVE PROCEDURE REPORT Name: VIRGIEAimeXAVIER D Room #: 241-P [facility] IN [facility]#: [id number] Admission: 05/05/20 Attend Phys: Lester Monet Discharge: 05/10/20 Date of : 71 Report #: [id number] Hemodynamics The aortic pressure is 134/77 mmHg with a mean of mmHg. The left ventricular pressure is 128/18 mmHg with a mean of mmHg. The left ventricular end diastolic pressure is 31 mmHg. PCI Technique Lesion Percutaneous coronary intervention was performed on the ramus intermedius segment. A LAUNCHER 6FR EBU 3.5 #[id number] Guide Catheter was used to engage the ramus ostium. A Luge Wire .014 x 182CM #[id number] Interventional Guidewire was used to cross the lesion. BALLOON DILATION A Balloon catheter Sprinter OTW 2.25 x 12 #[id number] was inserted and inflated up to 8atm for 21seconds. Additional Inflation: 8.00atm for 20seconds. Additional Inflation: 4.00atm for 21seconds. Conclusion 1. Successful PTCA no stent placement of a OM occluded vessel. Did restore some slow flow into the distal OM this is infarct vessel and minimal distribution #2 left main free of disease giving rise to an LAD and the circumflex which is a dominant system distally and the first OM occlusion mid OM occlusion which was dilated as noted above #3 LAD with mild diffuse irregularity #4 nondominant right coronary artery #5 normal left ventricular size and subtle lateral wall leg EF 50 to 55% Recommendations and plan: Continue aggressive risk factor modification. Only minimal flow noted into this distal half of this OM branch with angioplasty. Does not appear that the further risk is worth the benefit here she remains hemodynamically stable and pain-free. Transfer back to telemetry unit <ELECTRONICALLY SIGNED> By: Flaquito Marie MD, [facility] 05/17/20 0952 1 1 Flaquito Marie MD, FACC /INF
== END 2020-05-10 23:58 | DRG 853 ==
LOC: ER 00:15 → ICU 08:20 → 2N 08:20 → ICU 05-07 12:11
PROVIDERS: Emergency Medicine; Hospitalist; Internal Medicine; Internal Medicine Cardiovascular Disease; Nurse Practitioner; Nurse Practitioner Family; Pediatrics; Specialist; ADMIT Hospitalist; ATTEND Hospitalist
DX: A41.9 Sepsis, unspecified organism (principal); I21.4 Non-ST elevation (NSTEMI) myocardial infarction; J96.21 Acute and chronic respiratory failure with hypoxia; J18.9 Pneumonia, unspecified organism; R65.21 Severe sepsis with septic shock; E87.2 Acidosis; E87.1 Hypo-osmolality and hyponatremia; N17.9 Acute kidney failure, unspecified; Z68.41 Body mass index [BMI] 40.0-44.9, adult; G43.909 Migraine, unspecified, not intractable, without status migrainosus; E78.5 Hyperlipidemia, unspecified; M43.6 Torticollis; E83.42 Hypomagnesemia; E03.9 Hypothyroidism, unspecified; E11.51 Type 2 diabetes mellitus with diabetic peripheral angiopathy without gangrene; Z71.6 Tobacco abuse counseling; G25.81 Restless legs syndrome; I65.22 Occlusion and stenosis of left carotid artery; Z20.828 Contact with and (suspected) exposure to other viral communicable diseases; R00.0 Tachycardia, unspecified; Z86.73 Personal history of transient ischemic attack (TIA), and cerebral infarction without residual deficits; E66.01 Morbid (severe) obesity due to excess calories; E78.00 Pure hypercholesterolemia, unspecified; Z88.8 Allergy status to other drugs, medicaments and biological substances; I25.2 Old myocardial infarction; Z79.82 Long term (current) use of aspirin; Z79.899 Other long term (current) drug therapy; Z82.49 Family history of ischemic heart disease and other diseases of the circulatory system
CPT/HCPCS: 10078; 10081